=== PATIENT | female | born 1960 | race Caucasian/White ===

== ENCOUNTER 2018-12-11 07:07 | Day surgery (SDC) | payer OTHER ==
[~2018-12-11] VITALS: Ht 162.6 cm; Wt 104.3 kg
[~2018-12-11 07:07] MED LIST: ASPIRIN ADULT L81 M1 PO; BUPROPION HCL150 M2 PO; LEVOTHYROXIN0.075 MG PO; LOVASTATIN20 M PO; METFORMIN850 MG PO; METOCLOPRAMIDE10 PO; NOVOLIN N; RANITIDINE HCL PO; ZES5 PO; ZOLPIDEM TART10 MG PO; [UNRECOGNIZED DRUG - OTHER] PO
[2018-12-11 07:45] VITALS: BP 141/75
[2018-12-11 11:03] VITALS: BP 135/75
== END 2018-12-11 10:50 | disposition home or self-care (01) ==
LOC: GI 07:07 → OR 09:00 → GI 09:00
DX: K52.89 Other specified noninfective gastroenteritis and colitis (principal); D12.2 Benign neoplasm of ascending colon; K63.89 Other specified diseases of intestine; I10 Essential (primary) hypertension; K64.4 Residual hemorrhoidal skin tags; E78.5 Hyperlipidemia, unspecified; E11.40 Type 2 diabetes mellitus with diabetic neuropathy, unspecified; M06.9 Rheumatoid arthritis, unspecified; E66.9 Obesity, unspecified; K21.9 Gastro-esophageal reflux disease without esophagitis; Z79.82 Long term (current) use of aspirin; Z79.899 Other long term (current) drug therapy; Z79.84 Long term (current) use of oral hypoglycemic drugs; Z79.4 Long term (current) use of insulin; Z85.3 Personal history of malignant neoplasm of breast; Z92.21 Personal history of antineoplastic chemotherapy; Z92.3 Personal history of irradiation; Z90.11 Acquired absence of right breast and nipple; Z98.41 Cataract extraction status, right eye; Z90.49 Acquired absence of other specified parts of digestive tract; Z68.39 Body mass index [BMI] 39.0-39.9, adult
CPT/HCPCS: 45378; J1200; J1610; J2250; J2310; J3010; J3490